=== PATIENT | female | born 1950 | race Caucasian/White ===

== ENCOUNTER → 2021-09-02 | Day surgery (SDC) | payer MEDICARE ==
[~2021-09-02] MED LIST: FLU VACC QS2021-22(65YR UP)/PF 240 MCG/0.7 ML SYRINGE IM ONE; Lidocaine 1% PF 5 ML VIAL ONE; Sodium Bicarbonate 2.5 MEQ/5 ML VIAL ONE
[2021-09-02 12:59] VITALS: TEMP 97.7
[2021-09-02 14:19] VITALS: BP 189/90
[2021-09-02 17:56] LABS: BF Color Yellow; Body Fluid Source Paracentesis Fluid; Clarity Hazy (Clear); Tube # EDTA
[2021-09-02 18:12] LABS: BF Segmented Neutrophils 30 %; Lymphocytes 51 %
[2021-09-02 18:13] LABS: Cell Count Non Hematic 19 %
[2021-09-02 20:54] LABS: Fluid, Glucose 126 mg/dL (Not Available); Fluid, Protein Less than 1.0 g/dL (Not Available)
== END ==
LOC: CSHULT 12:06
PROVIDERS: ATTEND Internal Medicine Gastroenterology
DX: R18.8 Other ascites (principal)
CPT/HCPCS: 49083; 82945; 84157; 89051